=== PATIENT | male | born 1950 | race African-American/Black ===

== ENCOUNTER 2017-09-18 08:03 | Day surgery (SDC) | payer OTHER ==
[2017-09-16 10:59] VITALS: BMI 34.7
[2017-09-18] MEDS ORDERED: BUPIVACAINE HCL/PF 2.5 MG/ML - 30 ML VIAL IJ ONE (08:39)
[2017-09-18] MEDS ORDERED: EPINEPHrine 1:1,000 1 MG/1 ML - 30ML VIAL (INJECTION) ONE (08:39)
[2017-09-18] MEDS ORDERED: MIDAZOLAM HCL 2 MG/2 ML SINGLE DOSE VIAL ONE (09:31)
[2017-09-18] MEDS ORDERED: PROPOFOL 20 ML ONE ×3 (09:31→09:59)
[2017-09-18] MEDS ORDERED: LIDOCAINE HCL/PF 2% SDV 5ML VIAL ONE (09:31)
[2017-09-18] MEDS ORDERED: KETOROLAC TROMETHAMINE 30 MG/1 ML VIAL ONE (09:33)
[2017-09-18] MEDS ORDERED: DEXAMETHASONE SOD PHOSPHATE 4 MG/1 ML VIAL ONE (09:33)
[2017-09-18] MEDS ORDERED: ceFAZolin SODIUM 1 GM VIAL ONE (09:33)
[2017-09-18] MEDS ORDERED: ONDANSETRON 4 MG/2 ML VIAL ONE (09:33)
[2017-09-18] MEDS ORDERED: LIDOCAINE HCL 2% JELLY (5 ML/TUBE) ONE (09:34)
[2017-09-18] MEDS ORDERED: SODIUM CHLORIDE 0.9% P/F 10 ML VIAL IJ ONE (10:11)
[2017-09-18] MEDS ORDERED: PHENYLEPHRINE HCL 10 MG/1 ML SINGLE DOSE VIAL ONE (10:11)
[2017-09-18] MEDS ORDERED: BUPIVACAINE HCL/PF 0.25% (2.5MG/ML) 10 ML VIAL IJ ONE (10:50)
[2017-09-18] MEDS ORDERED: oxyCODONE HCL 5 MG TABLET PO PRN ×2 (11:02)
[2017-09-18] MEDS ORDERED: PROMETHAZINE HCL 25 MG/1 ML VIAL IVPUSH PRN (11:02)
[2017-09-18] MEDS ORDERED: ONDANSETRON 4 MG/2 ML VIAL IVPUSH PRN (11:02)
[2017-09-18] MEDS ORDERED: LACTATED RINGERS SOLUTION 1,000 ML IV SCH (11:15)
[2017-09-18 11:59] VITALS: BP 137/86; PULSE 72
[2017-09-18 12:39] VITALS: TEMP 98
--- NOTE | 2017-09-20 21:31 | OP ---
DATE OF OPERATION: 09/18/2017 LOCATION: [facility]. SURGEON: ORA Hurst PREOPERATIVE DIAGNOSES: 1. Left knee medial and lateral meniscal tear. 2. Left knee cartilage injury. 3. Left knee synovitis. POSTOPERATIVE DIAGNOSES: 1. Left knee medial and lateral meniscal tear. 2. Left knee cartilage injury. 3. Left knee synovitis. PROCEDURES: 1. Left knee arthroscopy with partial meniscectomy of medial and lateral meniscus. 2. Left knee arthroscopy with chondroplasty and abrasion-plasty. 3. Left knee arthroscopy with synovectomy. FINDINGS: 1. Medial meniscus body and posterior horn tear. 2. Lateral meniscus anterior one-third undersurface tear, undersurface 50%. 3. Synovitis, patellofemoral, medial and lateral notch area. 4. Central grade 2 to 3 cartilage injury, medial femoral condyle, with 1 to 2 changes of media tibial plateau. 5. ACL and PCL intact. 6. Central grade 1 to 2 cartilage injury, lateral joint line. 7. Central grade 2 to 4 cartilage injury, patellofemoral trochlea and patellofemoral joint. PROCEDURE: Informed consent was obtained. The patient was taken to the operating room where the left lower extremity was prepped and draped in a sterile fashion. A tourniquet was placed on the left upper thigh but not inflated. Using standard arthroscopic technique, a lateral incision and portal were made which allowed for introduction of the camera into the suprapatellar bursa. This was then taken to the medial joint line where under direct visualization, a medial incision and portal were made. Excessive synovium noted in the medial, lateral, patellofemoral and notch area was removed by the up-biting shaver and Bovie cautery. This was found to bring inflammatory tissue into the joint surface, a source of joint pain and dysfunction. Probing of the medial and lateral meniscus found tears described in the findings. These were removed with an up-biting shaver and taken back to a stable rim. Grade 2-3 degenerative changes were treated with chondroplasty, removing all flaking surfaces with low setting Bovie used along the periphery. Grade 4 changes were treated with abrasion-plasty. All areas of the knee were once again re-examined. The knee was then drained. A single suture was placed on all portals. Sterile dressing was placed. The patient was transferred to the recovery room. RICHY WING M.D. [id number]
--- NOTE | 2017-09-21 15:47 | PATH ---
Surgical Pathology Report Patient Name: ANCELMO CORDOVA Med. Rec. #: [id number] /Age/Gender: 1950 (Age: 67) / M Account: [id number] Location: [facility] Taken: 09/18/2017 Received: 09/18/2017 Reported: 09/21/2017 Physicians: Galen Meyer M.D. Specimen(s) Received LEFT KNEE SHAVINGS Clinical History Left knee meniscal tear Final Diagnosis KNEE, LEFT, ARTHROSCOPIC SHAVING: FIBROCARTILAGE WITH MYXOID DEGENERATIVE CHANGES, ALONG WITH PORTIONS OF SYNOVIUM WITH CHRONIC INFLAMMATION, AND HYALINE CARTILAGE. Electronically Signed Nhan Bernal M.D. Gross Description Received in formalin, labeled "left knee shavings," is a 4.0 x 3.7 x 0.3 cm. aggregate of servin-yellow soft tissue fragments. A pharmacy services representative portion is submitted in one cassette. 09/18/201709/18/2017
== END 2017-09-18 12:40 | disposition home or self-care (01) ==
LOC: FASU 08:03
PROVIDERS: ATTEND Orthopaedic Surgery
PROC: 0SBD4ZZ Excision of Left Knee Joint, Percutaneous Endoscopic Approach (ICD-10-PCS; 2017-09-18)
PROC: 0SBD4ZZ Excision of Left Knee Joint, Percutaneous Endoscopic Approach (ICD-10-PCS; 2017-09-18)
PROC: 0SBD4ZZ Excision of Left Knee Joint, Percutaneous Endoscopic Approach (ICD-10-PCS; principal; 2017-09-18 09:30)
DX: S83.242A Other tear of medial meniscus, current injury, left knee, initial encounter (principal); S83.282A Other tear of lateral meniscus, current injury, left knee, initial encounter; S83.8X2A Sprain of other specified parts of left knee, initial encounter; M65.862 Other synovitis and tenosynovitis, left lower leg; X58.XXXA Exposure to other specified factors, initial encounter; Y92.9 Unspecified place or not applicable; Y93.9 Activity, unspecified
CPT/HCPCS: 88304-TC; 94760